=== PATIENT | female | born 1975 | race Two or more races ===

== ENCOUNTER 2018-08-02 03:53 | Emergency (ER) | payer SELFPAY ==
[2018-08-02 04:02] VITALS: O2SAT 98
--- NOTE | 2018-08-02 04:19 | ED PDOC ---
HPI: Psych/Substance Abuse Time Seen by Provider: 08/02/18 03:58 Chief Complaint (Nursing): Psychiatric Evaluation Chief Complaint (Provider): crisis evaluation History Per: Patient History/Exam Limitations: no limitations Additional Complaint(s): Talya Lock is a 42 year old female, with no significant past medical history, who was brought to the emergency department by [facility][1] for possible crisis evaluation. As per EMS patient was wandering and yelling at the lightrail. Patient is calm and cooperative but declines to give name citing she was brought against her will. Patient is not under police arrest and denies any suicidal or homicidal ideation, visual or auditory hallucinations. No further medical complaints. She declines any further information and denies any medical history. PMD: None provided. Past Medical History Reviewed: Historical Data, Nursing Documentation, Vital Signs Vital Signs: Last Vital Signs Temp 98.0 F 08/02/18 03:58 Pulse 77 08/02/18 03:58 Resp 17 08/02/18 03:58 BP 136/89 08/02/18 03:58 Pulse Ox 98 08/02/18 03:58 - Medical History PMH: No Chronic Diseases - Surgical History Surgical History: No Surg Hx - Family History Family History: States: Unknown Family Hx - Allergies Allergies/Adverse Reactions: Allergies Allergy/AdvReac Type Severity Reaction Status Date / Time No Known Allergies Allergy Verified 08/02/18 04:02 Review of Systems ROS Statement: Except As Marked, All Systems Reviewed And Found Negative Psych: Negative for: Suicidal ideation (or homicidal ideation), Other (auditory or visual hallucinations) Physical Exam - Reviewed Nursing Documentation Reviewed: Yes Vital Signs Reviewed: Yes - Physical Exam Appears: Positive for: No Acute Distress Head Exam: Positive for: ATRAUMATIC, NORMAL INSPECTION, NORMOCEPHALIC Skin: Positive for: Normal Color, Warm, Dry Eye Exam: Positive for: Normal appearance, EOMI, PERRL Neck: Positive for: Painless ROM Cardiovascular/Chest: Positive for: Regular Rate, Rhythm. Negative for: Murmur Respiratory: Positive for: Normal Breath Sounds. Negative for: Respiratory Distress Gastrointestinal/Abdominal: Positive for: Normal Exam, Soft. Negative for: Tenderness Extremity: Positive for: Normal ROM (upper and lower extremities). Negative for: Deformity, Swelling Neurologic/Psych: Positive for: Alert, Oriented, Gait (steady) - ECG O2 Sat by Pulse Oximetry: 98 (RA) Pulse Ox Interpretation: Normal Medical Decision Making Medical Decision Making: Time: 03:58 Initial Impression: 42 y/o female brought for crisis evaluation Initial Plan: --Crisis evaluation --Reevaluation 04:20 -Patient was seen and evaluated by crisis. Patient is psychiatrically and medically clear for discharge. ----- Scribe Attestation: Documented by Martin Suh, acting as a scribe for Franki Crawford MD. Provider Scribe Attestation: All medical record entries made by the Scribe were at my direction and personally dictated by me. I have reviewed the chart and agree that the record accurately reflects my personal performance of the history, physical exam, medical decision making, and the department course for this patient. I have also personally directed, reviewed, and agree with the discharge instructions and disposition. Disposition - Clinical Impression Clinical Impression: Normal exam - Disposition Disposition: Routine/Home Disposition Time: 04:25 Condition: STABLE Forms: [facility] ([place]ian)
[2018-08-02 04:32] VITALS: BP 120/72; PULSE 86; RESP 16; TEMP 98.7
== END 2018-08-02 04:30 | disposition home or self-care (01) ==
LOC: H.ER 03:53
DX: Z04.6 Encounter for general psychiatric examination, requested by authority (principal)